=== PATIENT | male | born 1940 | race Caucasian/White ===

== ENCOUNTER 2017-02-25 08:45 | Outpatient (CLI) | payer MEDICARE ==
[2017-02-25] MEDS ORDERED: Iopamidol 370 76% 100 ML VIAL ONE (09:45)
--- NOTE | 2017-02-25 10:58 | CT ---
CT ARTERIOGRAM ABDOMEN WITH IV CONTRAST AND 3D MIP IMAGING: History: Abdominal pain, weight loss. Comparison: 01-20-17 FINDINGS: There is mild arterial calcification. Good flow is demonstrated throughout the abdominal aorta and vi sceral arteries without significant stenosis apparent. Profusion of the bowel is uniform. The pelvis was not imaged. The gallbladder is surgically absent. There is scarring at each lung base. Calcified granulomata are consistent with healed granulomatous disease. Degenerative and post-operative changes involve the lum bar spine. Small hiatal hernia is noted. IMPRESSION: 1. Mild atherosclerosis of the abdomen without significant visceral artery stenosis apparent. POS: [facility]
== END 2017-02-25 08:46 | disposition home or self-care (01) ==
LOC: CT 08:45
PROVIDERS: ATTEND Internal Medicine Gastroenterology
DX: R10.9 Unspecified abdominal pain (principal); R63.4 Abnormal weight loss; I70.0 Atherosclerosis of aorta
CPT/HCPCS: 74175; 82565

== ENCOUNTER 2017-05-19 22:17 | Emergency (ER) | payer MEDICARE | END 2017-05-20 02:41 | disposition home or self-care (01) | LOC: ERS 22:17 | DX: R53.1 Weakness (principal); I10 Essential (primary) hypertension; F03.90 Unspecified dementia, unspecified severity, without behavioral disturbance, psychotic disturbance, mood disturbance, and anxiety; Z79.82 Long term (current) use of aspirin; Z79.899 Other long term (current) drug therapy | CPT/HCPCS: 99284 ==

== ENCOUNTER 2017-08-29 11:05 | Outpatient (CLI) | payer MEDICARE ==
--- NOTE | 2017-08-29 12:46 | MRI ---
MRI BRAIN WITHOUT CONTRAST: HISTORY: Intractable headache, memory loss. FINDINGS: Comparison is made to the exam of 03/26/16. Changes of cortical atrophy and chronic small-vessel ischemic disease are again seen. The ventricula r size is stable and the basilar cisterns are patent. No restricted diffusion is seen. No evidence of infarct, hemorrhage, midline shift, or abnormal extraaxial fluid collections is noted. There is f luid in the mastoid air cells bilaterally, right greater than left. There is mild mucosal disease in the left maxillary sinus. IMPRESSION: 1. Cortical atrophy. 2. Chronic small-vessel ischemic disease. 3. No evidence of acute intracranial process. 4. Mastoid effusions, right greater than left. POS: [facility]
== END 2017-08-29 11:06 | disposition home or self-care (01) ==
LOC: SCSMRI 11:05
PROVIDERS: ATTEND Psychiatry & Neurology Neurology
DX: R51 Headache (principal); G31.9 Degenerative disease of nervous system, unspecified; I67.82 Cerebral ischemia; H74.8X3 Other specified disorders of middle ear and mastoid, bilateral
CPT/HCPCS: 70551